=== PATIENT | female | born 1975 | race Caucasian/White ===

== ENCOUNTER 2020-10-15 21:25 | Inpatient (IN) | payer BC ==
[2020-10-15 22:37] LABS: #Eosinphils 0.1 thou/uL (0.0-0.7); #Lymphocytes 1.6 thou/uL (1.20-3.40); #Monocytes 0.3 thou/uL (0.11-0.59); #Neutrophils 4.2 thou/uL (1.40-6.50); %Basophils 0.3 % (0.0-1.0); %Eosinophils 0.9 % (0.0-10.0); %Lymphocytes 25.4 % (21.0-51.0); %Monocytes 5.6 % (0.0-10.0); %Neutrophils 67.8 % (42.0-75.0); Hemoglobin 13.4 g/dL (12.0-16.0); Mean Corpuscular HGB CONC 34.9 g/dL (32.0-36.0); Mean Corpuscular Hemoglobin 34.1 pg (27.0-31.0); Mean Corpuscular Volume 97.7 fL (78.0-98.0); Mean Platelet Volume 7.5 fL (7.4-10.4); Platelet Count 249 thou/uL (130-400); RBC Distribution Width 11.4 % (11.5-14.5); Red Blood Cell (RBC) Count 3.92 mill/uL (4.20-5.40); White Blood Cell (WBC) Count 6.1 thou/uL (4.8-10.8)
[2020-10-15] MEDS ORDERED: Aspirin Chewable 81 MG TAB ONE (22:44)
[2020-10-15 22:49] LABS: ALT (SGPT) 13 U/L (8-55); AST (SGOT) 15 U/L (5-34); Albumin 4.2 g/dL (3.5-5.0); Alkaline Phosphatase 60 U/L (40-110); Anion Gap 8 mmol/L (10-20); BUN (Urea Nitrogen) 17 mg/dL (7.0-18.7); Bilirubin, Total 0.4 mg/dL (0.2-1.2); Calc. Creatinine Clearance 0 mL/min (70-130); Calcium 9.1 mg/dL (7.8-10.44); Carbon Dioxide 25 mmol/L (22-29); Chloride 110 mmol/L (98-107); Globulin 2.7 g/dL (2.4-3.5); Glucose 100 mg/dL (70-105); Lipase 10 U/L (8-78); Potassium 4.5 mmol/L (3.5-5.1); Protein, Total 6.9 g/dL (6.0-8.3); Sodium 138 mmol/L (136-145)
[2020-10-16] MEDS ORDERED: Ondansetron ODT 4 MG TAB SL PRN (01:45)
[2020-10-16] MEDS ORDERED: Ondansetron PF 4 MG/2 ML Vial IVP PRN (01:45)
[2020-10-16] MEDS ORDERED: Acetaminophen 325 MG TAB PO PRN (01:45)
[2020-10-16 02:00] VITALS: BMI 33.0
[2020-10-16] MEDS ORDERED: Nitroglycerin 0.4 MG TAB (25 Tab Bottle) SL PRN (02:12)
[2020-10-16] MEDS ORDERED: Topiramate 25 MG TAB PO SCH (02:45)
[2020-10-16] MEDS ORDERED: Amitriptyline HCl 100 MG TAB PO SCH ×2 (02:45→21:00)
[2020-10-16 06:04] LABS: Cardiac Risk 4.5 (Less than 4.5)
[2020-10-16] MEDS ORDERED: Aspirin 325 MG TAB PO SCH (08:00)
[2020-10-16] MEDS: Topiramate 25 MG TAB PO SCH ×2 (08:17→21:55)
[2020-10-16] MEDS: Aspirin Chewable 81 MG TAB PO SCH (08:17)
[2020-10-16] MEDS ORDERED: SUMAtriptan Succinate 25 MG TAB PO PRN (08:26)
[2020-10-16] MEDS ORDERED: hydrALAZINE 20 MG/ML VIAL SLOW IVP PRN (08:27)
[2020-10-16] MEDS ORDERED: MAGNESIUM GLYCINATE MAG OXIDE PO SCH (09:00)
[2020-10-16] MEDS ORDERED: [UNRECOGNIZED DRUG - OTHER] PO SCH (09:00)
[2020-10-16] MEDS ORDERED: ADENOSINE 60 MG/20 ML VIAL ONE (09:01)
[2020-10-16 12:07] LABS: SARS-CoV-2 PCR by NAA Not Detected (NotDetected)
[2020-10-16] MEDS: Magnesium Oxide 250 MG TAB PO SCH (12:11)
[2020-10-16] MEDS: Meloxicam 15 MG TAB PO SCH (12:12)
[2020-10-16] MEDS ORDERED: Communication Order-Pharmacy FS SCH (17:30)
[2020-10-16] MEDS ORDERED: Gabapentin 300 MG CAP PO SCH (21:00)
[2020-10-16] MEDS: methylPREDNISolone Sod Succ 40 MG VIAL IVP SCH (21:55)
[2020-10-17] MEDS ORDERED: Sodium Chloride 0.9% 500 ML IV SCH ×2 (00:01→10:15)
[2020-10-17 05:23] LABS: #Lymphocytes 0.9 thou/uL (1.20-3.40); #Monocytes 0.1 thou/uL (0.11-0.59); #Neutrophils 6.5 thou/uL (1.40-6.50); %Basophils 0.2 % (0.0-1.0); %Monocytes 0.7 % (0.0-10.0); Hemoglobin 13.8 g/dL (12.0-16.0); Mean Corpuscular HGB CONC 34.8 g/dL (32.0-36.0); Mean Corpuscular Volume 97.8 fL (78.0-98.0); Mean Platelet Volume 7.6 fL (7.4-10.4); Platelet Count 245 thou/uL (130-400); RBC Distribution Width 11.2 % (11.5-14.5); Red Blood Cell (RBC) Count 4.06 mill/uL (4.20-5.40); White Blood Cell (WBC) Count 7.4 thou/uL (4.8-10.8)
[2020-10-17] MEDS: methylPREDNISolone Sod Succ 40 MG VIAL IVP SCH ×2 (05:42→13:20)
[2020-10-17] MEDS: Magnesium Oxide 250 MG TAB PO SCH (05:43)
[2020-10-17] MEDS: Topiramate 25 MG TAB PO SCH (05:44)
[2020-10-17] MEDS: Aspirin Chewable 81 MG TAB PO SCH (05:45)
[2020-10-17 07:33] LABS: Anion Gap 14 mmol/L (10-20); BUN (Urea Nitrogen) 13 mg/dL (7.0-18.7); Calc. Creatinine Clearance 119 mL/min (70-130); Carbon Dioxide 22 mmol/L (22-29); Chloride 107 mmol/L (98-107); Potassium 4.6 mmol/L (3.5-5.1); Sodium 138 mmol/L (136-145)
[2020-10-17 07:34] LABS: Calcium 9.4 mg/dL (7.8-10.44); Glucose 122 mg/dL (70-105)
[2020-10-17] MEDS ORDERED: Heparin 10,000 UNITS/ 10 ML VIAL ONE (09:05)
[2020-10-17] MEDS ORDERED: Verapamil 5 MG/2 ML VIAL ONE (09:05)
[2020-10-17] MEDS ORDERED: Nitroglycerin 100MG/250ML BOT 250 ML ONE (09:06)
[2020-10-17] MEDS ORDERED: Lidocaine 1% (PF) 30 ML VIAL ONE (09:06)
[2020-10-17] MEDS ORDERED: Fentanyl 100 MCG/2 ML VIAL ONE (09:32)
[2020-10-17] MEDS ORDERED: Midazolam HCl 2 mg/2 ml Vial ONE (09:32)
[2020-10-17] MEDS ORDERED: Sodium Chloride 0.9% 200 ML IV PRN (10:13)
[2020-10-17] MEDS ORDERED: Acetaminophen/Codeine 30-300mg Tablet PO PRN (10:13)
[2020-10-17] MEDS ORDERED: Iopamidol 370 76% 100 ML VIAL ONE (11:50)
[2020-10-17 12:30] VITALS: TEMP 98
[2020-10-17] MEDS: Meloxicam 15 MG TAB PO SCH (12:44)
[2020-10-17 17:30] VITALS: BP 117/59
== END 2020-10-17 17:05 | disposition home or self-care (01) | DRG 195 ==
LOC: ERS 21:25 → 2SW 23:44 → OBSVTOIN 10-16 15:52
PROVIDERS: ADMIT Hospitalist; ATTEND Student in an Organized Health Care Education/Training Program
PROC: 4A023N7 Measurement of Cardiac Sampling and Pressure, Left Heart, Percutaneous Approach (ICD-10-PCS; principal; 2020-10-17)
PROC: B2111ZZ Fluoroscopy of Multiple Coronary Arteries using Low Osmolar Contrast (ICD-10-PCS; 2020-10-17)
PROC: B2151ZZ Fluoroscopy of Left Heart using Low Osmolar Contrast (ICD-10-PCS; 2020-10-17)
PROC: 4A033BC Measurement of Arterial Pressure, Coronary, Percutaneous Approach (ICD-10-PCS; 2020-10-17)
DX: R09.1 Pleurisy (principal); G43.909 Migraine, unspecified, not intractable, without status migrainosus; E66.01 Morbid (severe) obesity due to excess calories; Z20.822 Contact with and (suspected) exposure to COVID-19; G89.29 Other chronic pain; F32.9 Major depressive disorder, single episode, unspecified; D25.9 Leiomyoma of uterus, unspecified; Z79.1 Long term (current) use of non-steroidal anti-inflammatories (NSAID); Z79.899 Other long term (current) drug therapy; Z68.33 Body mass index [BMI] 33.0-33.9, adult
CPT/HCPCS: 36415; 71045; 78452; 80048; 80053; 80061; 83690; 84484; 85025; 85379; 93005; 93017; 93458; 99152; 99153; A9500; G0378; J0153; J1644; J2001; J2250; J2920; J3010; Q9967; U0003; U0005